=== PATIENT | female | born 1970 | race Caucasian/White ===

== ENCOUNTER 2017-03-14 16:18 | Emergency (ER) ==
[2017-03-14 16:35] VITALS: BP 83/72; TEMP 99; BMI 18.9
--- NOTE | 2017-03-14 17:17 | ED.PDOC ---
General ED Provider: Dr. ARLETH BURNS Chief Complaint: Back Pain Stated Complaint: low back pain lumbar and coccyx pain Time Seen by Physician: 16:19 (seen with mariia at all times pt denied neck and upper back pain) Mode of Arrival: Walk-In Information Source: Patient Exam Limitations: No limitations Primary Care Provider: DMITRIY ESPINOZA Nursing and Triage Documentation Reviewed and Agree: Yes Trauma/Injury Complaint Exam - Trauma Complaint/Exam Location of Pain or Injury: Reports: Back (lumbar) Mechanism of Injury: Reports: Fall Onset/Duration: 1 hr ago Symptoms Are: Still present Initial Severity: Mild Current Severity: Mild Character: Reports: Aching Aggravating: Reports: Movement Alleviating: Reports: Rest Associated Signs and Symptoms: Denies: LOC, Confusion, Memory loss, Lethargy, Vomiting, Bleeding, Bruising, Swelling, Extremity disuse, Painful respiration, Hoarseness, Dysphagia, Hemoptysis, Significant blood loss Nexus Low Risk Criteria: No post-midline CS tender, No evidence of intoxicat., No Altered LOC, No focal neuro deficit, No distracting injuries Glascow Coma Scale (see protocol): 15 Differential Diagnoses: Fracture, Sprain, Strain Review of Systems - Review Of Systems Constitutional: Reports: No symptoms Eyes: Reports: No symptoms Ears, Nose, Mouth, Throat: Reports: No symptoms Respiratory: Reports: No symptoms Cardiac: Reports: No symptoms GI: Reports: No symptoms : Reports: No symptoms Musculoskeletal: Reports: Back pain Skin: Reports: No symptoms Neurological: Reports: No symptoms Endocrine: Reports: No symptoms Hematologic/Lymphatic: Reports: No symptoms All Other Systems: Reviewed and Negative Past Medical History - Past Medical History Previously Healthy: No Endocrine: Reports: None Cardiovascular: Reports: None Respiratory: Reports: None Hematological: Reports: None Gastrointestinal: Reports: None Genitourinary: Reports: None Neuro/Psych: Reports: Other (back pain) Musculoskeletal: Reports: Back Pain Cancer: Reports: None Last Menstrual Period: hysterectomy - Surgical History General Surgical History: Reports: Orthopedic - Family History Family History: Reports: Unknown - Social History Smoking Status: Never smoker Hx Substance Use: No Alcohol Screening: None Physical Exam - Physical Exam Appearance: Well-appearing, No pain distress, Well-nourished Eyes: MAGGIE, EOMI, Conjunctiva clear ENT: Ears normal, Nose normal, Oropharynx normal Respiratory: Airway patent, Breath sounds clear, Breath sounds equal, Respirations nonlabored Cardiovascular: RRR, Pulses normal, No rub, No murmur GI/: Soft, Nontender, No masses, Bowel sounds normal, No Organomegaly Musculoskeletal: Normal strength, ROM intact, No edema, No calf tenderness Skin: Warm, Dry, Normal color Neurological: Sensation intact, Motor intact, Reflexes intact, Cranial nerves intact, Alert, Oriented Psychiatric: Affect appropriate, Mood appropriate Interpretation - Radiology Interpretation Radiology Interpretation By: Radiologist Critical Care Note - Critical Care Note Total Time (mins): 0 Course - Course Orders, Labs, Meds: Orders Category Date Time Status CT LUMBAR SPINE W/O CONTRAST Stat RADS 03/14/17 16:[address] PELVIS W/O CONTRAST Stat RADS 03/14/17 16:40 Ordered Vital Signs: Temp Pulse Resp BP Pulse Ox 03/14/17 16:19 99.0 F 59 L 20 83/72 L 99 Departure - Departure Time of Disposition: 17:18 (d/c instruction given with mariia) Disposition: HOME SELF-CARE Discharge Problem: Backache Instructions: Chronic Back Pain (ED) Condition: Good Pt referred to PMD for follow-up: No Additional Instructions: Please call your Family Physician as soon as possible to schedule a follow-up appointment. Allergies/Adverse Reactions: Allergies acetaminophen [From Lortab] Adverse Reaction (Verified 03/14/17 16:31) codeine Adverse Reaction (Verified 03/14/17 16:31) hydrocodone [From Lortab] Adverse Reaction (Verified 03/14/17 16:31) morphine Adverse Reaction (Verified 03/14/17 16:31) Penicillins Adverse Reaction (Verified 03/14/17 16:31) Sulfa (Sulfonamide Antibiotics) Adverse Reaction (Verified 03/14/17 16:31) Home Medications: Ambulatory Orders Methocarbamol [Robaxin] 150 mg PO BEDTIME 03/14/17 Oxycodone-Acetaminophe 7.5-325 [Percocet 7.5-325] 1 tab PO TID PRN 03/14/17 Topiramate [Topamax] 100 mg PO BID 03/14/17 Trazodone HCl 50 mg PO BEDTIME 03/14/17
--- NOTE | 2017-03-14 17:18 | CT ---
EXAM: CT scan lumbar spine HISTORY: Fall COMPARISON: CT scan lumbar spine 01/30/2017 FINDINGS: Contiguous axial images obtained through the lumbar spine utilizing 3-mm collimation. Sa gittal and coronal reconstructions were imaged and reviewed... The vertebral bodies normal height a nd alignment. There has been prior discectomy with interbody spacer L4-L5.. There has been partial laminectomy L4.. Posterior, bone graft material is noted at L4-L5 There is multilevel facet arthr opathy. IMPRESSION: No acute findings.
--- NOTE | 2017-03-14 17:21 | CT ---
Exam: CT of the pelvis without contrast History: Fall with hip and coccyx pain Technique: [address] bony pelvis with multiplanar reformations FINDINGS: The pelvic ring is intact. Femoral hips are intact. 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 No acute findings of the pelvic viscera. Prior hysterectomy. Prior L4-5 fusion. A subtle nondisplaced transverse fracture of S4. Impression: 1. Subtle transverse sacrococcygeal fracture at S4 2. The pelvic ring and femoral hips are intact.
== END 2017-03-14 17:53 | disposition home or self-care (01) ==
LOC: ED 16:18
DX: S32.14XA Type 1 fracture of sacrum, initial encounter for closed fracture (principal); W19.XXXA Unspecified fall, initial encounter
CPT/HCPCS: 99283